=== PATIENT | female | born 2000 | race Caucasian/White ===

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

== ENCOUNTER → 2022-09-22 | Outpatient (REF) | payer OTHER ==
[2022-09-22 20:00] LABS: GC DNA AMPLIFICATION NEGATIVE (NEGATIVE)
== END ==
LOC: M LAB REF 17:24
PROVIDERS: ATTEND Physician Assistant
DX: Z79.3 Long term (current) use of hormonal contraceptives (principal)

== ENCOUNTER → 2022-12-27 | Outpatient (CLI) | payer OTHER ==
[2022-12-27 13:42] LABS: HEMOGLOBIN A1c 5.1 % (4.0-6.0)
[2022-12-27 13:49] LABS: FREE T4 1.08 NG/DL (0.83-1.43); THYROID STIMULATING HORMONE 1.447 uIU/ML (0.48-4.17)
[2022-12-27 13:50] LABS: LUTEINIZING HORMONE 3.4 mIU/ML; PROLACTIN 11.43 NG/ML
[2022-12-27 13:51] LABS: CHOLESTEROL RISK RATIO 3.41 (<5); ESTRADIOL 20.6 PG/ML; FOLLICLE STIMULATING HORMONE 4.7 mIU/ML; HDL CHOLESTEROL 55.7 MG/DL (>40); LDL CHOLESTEROL 114.1 MG/DL (<100); NON-HDL-C 134.3 MG/DL
[2022-12-28 11:09] LABS: TESTOSTERONE FREE (DIRECT) 0.7 pg/mL (0.0-4.2)
== END ==
LOC: M LABDRWAD 08:34
PROVIDERS: ATTEND Pediatrics
DX: N94.6 Dysmenorrhea, unspecified (principal)

== ENCOUNTER → 2023-01-28 | Outpatient (REF) | payer OTHER ==
[2023-01-28 13:12] LABS: APPEARANCE, URINE HAZY (CLEAR); BACTERIA, URINE AUTO NEGATIVE (NEGATIVE); BILIRUBIN, URINE AUTO NEGATIVE (NEGATIVE); BLOOD, URINE BLOOD NEGATIVE (NEGATIVE); COLOR, URINE YELLOW (YELLOW); GLUCOSE, URINE (UA) AUTO NEGATIVE (NEGATIVE); KETONE, URINE AUTO NEGATIVE (NEGATIVE); LEUKOCYTE ESTERASE, URINE AUTO 1+ (NEGATIVE); MUCUS, URINE SMALL (NEGATIVE); NITRITE, URINE AUTO NEGATIVE (NEGATIVE); PROTEIN, URINE AUTO NEGATIVE (NEGATIVE); RBC, URINE AUTO 9 /HPF (0-3); SQUAMOUS EPITHELIAL CELL UR AU 7 /HPF (0-6); UROBILINOGEN, URINE AUTO 0.2 mg/dL (0.0-2.0); WBC, URINE AUTO 12 /HPF (0-3)
== END ==
LOC: M LAB REF 12:21
PROVIDERS: ATTEND Physician Assistant
DX: N39.0 Urinary tract infection, site not specified (principal)

== ENCOUNTER → 2023-04-14 | Outpatient (CLI) | payer OTHER | LOC: M ADAMS 08:57 | PROVIDERS: ATTEND Pediatrics | DX: J45.41 Moderate persistent asthma with (acute) exacerbation (principal) ==

== ENCOUNTER 2023-04-25 19:20 | Emergency (ER) | payer OTHER ==
[~2023-04-25] VITALS: Ht 149.9 cm; Wt 93.5 kg
[2023-04-25 19:22] VITALS: TEMP 98.6
[2023-04-25 20:18] LABS: HEMOGLOBIN 13.9 g/dl (12.0-15.5); MEAN CORPUSCULAR HEMOGLOBIN 29.1 pg (27.0-33.0); MEAN CORPUSCULAR HGB CONC 33.9 g/dl (32.0-36.5); PLATELET COUNT, AUTOMATED 380 10^3/uL (150-450); RED BLOOD COUNT 4.77 10^6/uL (4.00-5.40)
[2023-04-25 20:33] LABS: ALBUMIN 3.4 G/DL (3.2-5.2); ALKALINE PHOSPHATASE 82 U/L (46-116); ALT/SGPT 23 U/L (7.0-40); AST/SGOT 13 U/L (<34); BILIRUBIN,TOTAL 0.6 MG/DL (0.3-1.2); BLOOD UREA NITROGEN 14 MG/DL (9-23); CALCIUM LEVEL 9.5 MG/DL (8.5-10.1); CARBON DIOXIDE LEVEL 27 MMOL/L (20-31); CHLORIDE LEVEL 106 MMOL/L (98-107); CREATININE FOR GFR 0.65 MG/DL (0.55-1.30); GLUCOSE, FASTING 94 MG/DL (60-100); POTASSIUM SERUM 3.6 MMOL/L (3.5-5.1); SODIUM LEVEL 140 MMOL/L (136-145); TOTAL PROTEIN 6.8 G/DL (5.7-8.2)
[2023-04-26] MEDS ORDERED: methylPREDNISolone 125MG 2ML VIAL IV ONE
[2023-04-26] MEDS: IPRATROPIUM 0.5MG/ALBUTEROL 2.5MG INH SOL UD 3ML (DUONEB) NEB PRN ×3 (00:20→00:26)
[2023-04-26 01:22] LABS: HCG, SERUM QUALITATIVE NEGATIVE (NEGATIVE)
[2023-04-26] MEDS ORDERED: ISOVUE-370 76% 100ML VIAL As Ordered ONE (01:30)
[2023-04-26 03:50] VITALS: BP 130/84; O2SAT 99
[2023-04-26] MEDS ORDERED: DOXY-443 PO (04:50)
[2023-04-26] MEDS ORDERED: IPRATROPIUM 0.5MG/ALBUTEROL 2.5MG INH SOL UD 3ML (DUONEB) NEB ONE (04:50)
[2023-04-26] MEDS ORDERED: DOXYCYCLINE HYCLATE 100MG TABLET PO ONE (04:50)
[2023-04-26] MEDS ORDERED: COMBAER6 INH (04:50)
[2023-04-26] MEDS ORDERED: PULM90IN INH (05:15)
== END 2023-04-26 05:10 | disposition home or self-care (01) ==
LOC: M ED 19:20
DX: J18.9 Pneumonia, unspecified organism (principal); J98.01 Acute bronchospasm; R00.0 Tachycardia, unspecified; F17.200 Nicotine dependence, unspecified, uncomplicated; Z79.1 Long term (current) use of non-steroidal anti-inflammatories (NSAID); Z79.52 Long term (current) use of systemic steroids; Z79.899 Other long term (current) drug therapy
CPT/HCPCS: 71275; 80053; 84703; 85027; 87040; 87486; 87581; 87633; 87798; 93005; 94640; 96374; 99284; J2930; Q9967

== ENCOUNTER → 2023-10-29 | Outpatient (REF) | payer OTHER ==
[~2023-10-29] MED LIST changes: +COMBAER6 INH; +DOXY-443 PO; +MONT5TAB7 PO; +PULM90IN INH; -SING5CHW23 PO
[2023-10-29 21:01] LABS: APPEARANCE, URINE HAZY (CLEAR); BACTERIA, URINE AUTO 1+ (NEGATIVE); BILIRUBIN, URINE AUTO NEGATIVE (NEGATIVE); BLOOD, URINE BLOOD NEGATIVE (NEGATIVE); COLOR, URINE YELLOW (YELLOW); GLUCOSE, URINE (UA) AUTO NEGATIVE (NEGATIVE); KETONE, URINE AUTO NEGATIVE (NEGATIVE); LEUKOCYTE ESTERASE, URINE AUTO NEGATIVE (NEGATIVE); MUCUS, URINE SMALL (NEGATIVE); NITRITE, URINE AUTO NEGATIVE (NEGATIVE); PROTEIN, URINE AUTO 1+ mg/dL (NEGATIVE); RBC, URINE AUTO 3 /HPF (0-3); SPECIFIC GRAVITY URINE AUTO 1.016 (1.002-1.035); SQUAMOUS EPITHELIAL CELL UR AU 9 /HPF (0-6); UROBILINOGEN, URINE AUTO 0.2 mg/dL (0.0-2.0); WBC, URINE AUTO 8 /HPF (0-3)
== END ==
LOC: M LAB REF 20:14
PROVIDERS: ATTEND Physician Assistant Medical
DX: N39.0 Urinary tract infection, site not specified (principal)

== ENCOUNTER → 2023-12-08 | Outpatient (REF) | payer OTHER ==
[~2023-12-08] MED LIST changes: +DOXY-323 PO; -DOXY-443 PO
== END ==
LOC: M LAB REF 12:02
PROVIDERS: ATTEND Physician Assistant
DX: B34.9 Viral infection, unspecified (principal)

== ENCOUNTER → 2024-02-15 | Outpatient (REF) | payer OTHER ==
[2024-02-15 17:32] LABS: ALBUMIN 3.7 G/DL (3.2-5.2); ALKALINE PHOSPHATASE 98 U/L (46-116); ALT/SGPT 20 U/L (7.0-40); AST/SGOT 12 U/L (<34); BILIRUBIN,TOTAL 0.5 MG/DL (0.3-1.2); BLOOD UREA NITROGEN 9 MG/DL (9-23); CALCIUM LEVEL 9.7 MG/DL (8.5-10.1); CARBON DIOXIDE LEVEL 22 MMOL/L (20-31); CHLORIDE LEVEL 107 MMOL/L (98-107); CREATININE FOR GFR 0.65 MG/DL (0.55-1.30); GLOMERULAR FILTRATION RATE > 60.0 (>60); GLUCOSE, FASTING 82 MG/DL (60-100); POTASSIUM SERUM 4.5 MMOL/L (3.5-5.1); SODIUM LEVEL 138 MMOL/L (136-145)
[2024-02-15 17:34] LABS: FERRITIN 23.9 NG/ML (7.3-270.7)
[2024-02-15 17:35] LABS: TOTAL 25(OH) VITAMIN D 30.7 NG/ML (20.0-100.0)
[2024-02-15 17:49] LABS: HEMOGLOBIN 13.7 g/dl (12.0-15.5); MEAN CORPUSCULAR HEMOGLOBIN 28.8 pg (27.0-33.0); MEAN CORPUSCULAR HGB CONC 33.4 g/dl (32.0-36.5); MEAN CORPUSCULAR VOLUME 86.1 fl (80.0-96.0); PLATELET COUNT, AUTOMATED 375 10^3/uL (150-450); RED BLOOD COUNT 4.76 10^6/uL (4.00-5.40); WHITE BLOOD COUNT 10.7 10^3/uL (4.0-10.0)
[2024-02-15 18:15] LABS: APPEARANCE, URINE HAZY (CLEAR); BACTERIA, URINE AUTO 1+ (NEGATIVE); BILIRUBIN, URINE AUTO NEGATIVE (NEGATIVE); BLOOD, URINE BLOOD 1+ (NEGATIVE); COLOR, URINE YELLOW (YELLOW); GLUCOSE, URINE (UA) AUTO NEGATIVE (NEGATIVE); KETONE, URINE AUTO NEGATIVE (NEGATIVE); LEUKOCYTE ESTERASE, URINE AUTO 2+ (NEGATIVE); NITRITE, URINE AUTO POSITIVE (NEGATIVE); PROTEIN, URINE AUTO NEGATIVE (NEGATIVE); RBC, URINE AUTO 0 /HPF (0-3); SPECIFIC GRAVITY URINE AUTO 1.011 (1.002-1.035); SQUAMOUS EPITHELIAL CELL UR AU 5 /HPF (0-6); UROBILINOGEN, URINE AUTO 0.2 mg/dL (0.0-2.0); WBC, URINE AUTO 8 /HPF (0-3)
[2024-02-15 18:38] LABS: HEMOGLOBIN A1c 4.9 % (4.0-6.0)
== END ==
LOC: M SFHCPLAZ 11:59
PROVIDERS: ATTEND Family Medicine
DX: Z13.1 Encounter for screening for diabetes mellitus (principal); R53.82 Chronic fatigue, unspecified; R82.90 Unspecified abnormal findings in urine; E55.9 Vitamin D deficiency, unspecified

== ENCOUNTER → 2024-04-19 | Outpatient (REF) | payer OTHER | LOC: M SFHCPLAZ 14:53 | PROVIDERS: ATTEND Physician Assistant Medical | DX: J40 Bronchitis, not specified as acute or chronic (principal) ==

== ENCOUNTER → 2024-06-27 | Outpatient (CLI) | payer OTHER ==
[~2024-06-27] MED LIST changes: +BUDE90AE INH; -DOXY-323 PO; +DOXY-441 PO; -PULM90IN INH
== END ==
LOC: M WHC 12:31
PROVIDERS: ATTEND Family Medicine
DX: N64.4 Mastodynia (principal)

== ENCOUNTER → 2024-08-16 | Outpatient (REF) | payer OTHER | LOC: M SFHCPLAZ 14:03 | PROVIDERS: ATTEND Family Medicine | DX: Z12.4 Encounter for screening for malignant neoplasm of cervix (principal) ==

== ENCOUNTER → 2025-05-21 | Outpatient (REF) | payer OTHER ==
[2025-05-21 14:47] LABS: Trichomonas vaginalis (AMP) NOT DETECTED (NEGATIVE)
[2025-05-21 15:11] LABS: GC DNA AMPLIFICATION NEGATIVE (NEGATIVE)
[2025-05-21 15:48] LABS: ESTIMATED AVERAGE GLUCOSE 97.0 MG/DL (60-110)
[2025-05-21 16:08] LABS: HEPATITIS B SURFACE ANTIBODY NEGATIVE (POSITIVE)
[2025-05-21 16:33] LABS: HIV 1&2 SCREEN NEGATIVE (NEGATIVE)
[2025-05-21 16:41] LABS: HEPATITIS C VIRUS ABY INDEX 0.10 INDEX (<0.8)
== END ==
LOC: M SFHCPLAZ 11:43
PROVIDERS: ATTEND Family Medicine
DX: Z11.3 Encounter for screening for infections with a predominantly sexual mode of transmission (principal); Z13.1 Encounter for screening for diabetes mellitus